=== PATIENT | female | born 1970 | race Caucasian/White ===

== ENCOUNTER → 2020-03-23 09:43 | Outpatient (BNVA) | payer OTHER, SELFPAY | PROVIDERS: Family Provider Nurse Practitioner; PCP Nurse Practitioner; Visit Provider Nurse Practitioner | DX: Z00.00 Encounter for general adult medical examination without abnormal findings (principal); I10 Essential (primary) hypertension; E66.01 Morbid (severe) obesity due to excess calories; Z12.39 Encounter for other screening for malignant neoplasm of breast; Z78.9 Other specified health status | CPT/HCPCS: 80053; 80061; 83036; 85025; 88175 ==

== ENCOUNTER → 2020-05-06 11:14 | Outpatient (BNVA) | payer OTHER, SELFPAY | PROVIDERS: Family Provider Nurse Practitioner; PCP Nurse Practitioner; Visit Provider Nurse Practitioner | DX: M10.9 Gout, unspecified (principal); M25.572 Pain in left ankle and joints of left foot; M77.32 Calcaneal spur, left foot; M76.62 Achilles tendinitis, left leg | CPT/HCPCS: 73610; 73630; 84550; 85025 ==

== ENCOUNTER → 2020-10-20 08:35 | Outpatient (BNVA) | payer SELFPAY | PROVIDERS: PCP Nurse Practitioner; Visit Provider Nurse Practitioner | DX: Z01.89 Encounter for other specified special examinations (principal) ==

== ENCOUNTER 2020-11-28 07:21 | Outpatient (CLI) | payer OTHER, SELFPAY ==
[2020-11-28 08:28] VITALS: BP 132/85; PULSE 75; RESP 19; TEMP 36.9; O2SAT 97
[2020-11-28 09:13] VITALS: BP 121/79; PULSE 64; RESP 19; O2SAT 94
--- NOTE | 2020-11-28 10:40 | A.OFFVIS_ITS ---
Patient Information Referred by: ROHINI Berry Symptom onset date: 11/23/20 COVID 19 common symptoms: positive fever(s), chills, cough, dyspnea, fatigue and body aches Severity: moderate Treatment prior to arrival: none Other details: Patient is a 50-year-old female here for a BAM infusion. Patient qualifies based on her BMI. Risks and benefits of using an experimental drug to treat COVID were discussed with patient and she verbalizes understanding and wishes to proceed with infusion. Positive results were not able to be verified as she was tested at [facility] and they are not open on Monday. Her is here for infusion as well and we do have a positive COVID result on file for him. She has direct exposure and symptomatic so spoke with Dr. Carson and will go ahead and order infusion. PATRIZIA COVID test results: No Data to Display no outside results available (pt was tested by [facility] and they are not open on Mon) Criteria/Plan Inclusion/Exclusion Criteria weight >/= 40kg, + direct test </= 10 days ago and symptom onset </= 10 days ago BMI >/= 35 not requiring hospitalization, not requiring oxygen (if not chronically on oxygen) and no increase oxygen requirement (if chronically on oxygen) Patient education patient/family/caregiver received/reviewed fact sheet, Emergency Use Authorization/unapproved drug status discussed with patient/family/caregiver, alternatives to this treatment discussed with patient/family/caregiver, risks and benefits of medication reviewed with patient/family/caregiver, patient/family/caregiver given opportunity for questions, which were answered and patient consents to receiving Monoclonal Antibody Treatment Plan for treatment Meets criteria for Monoclonal Antibody infusion Ordering Monoclonal Antibody infusion for today
--- NOTE | 2020-11-28 12:10 | PC.NURSE ---
Infusion finished, denies any complaints at this time.
--- NOTE | 2020-11-28 12:37 | PC.NURSE ---
IV DC'd ,cath intact, bleeding controlled with cotton ball and and coban. Tolerated well with zero complaints.
[2020-11-28 12:48] VITALS: BP 120/78; PULSE 70; RESP 18; TEMP 37.5; O2SAT 95
--- NOTE | 2020-11-28 13:10 | PC.NURSE ---
Patient denies any complaints at this time, discharged , patient resting in infusion room with .
== END 2020-11-28 07:22 | disposition home or self-care (01) ==
PROVIDERS: PCP Nurse Practitioner; Visit Provider Nurse Practitioner
DX: U07.1 COVID-19 (principal)
CPT/HCPCS: 96365

== ENCOUNTER → 2020-12-31 11:02 | Outpatient (BNVA) | payer OTHER, SELFPAY | PROVIDERS: PCP Nurse Practitioner; Visit Provider Nurse Practitioner | DX: R05 Cough (principal) | CPT/HCPCS: 71046 ==

== ENCOUNTER → 2021-05-17 10:22 | Outpatient (BNVA) | payer OTHER, SELFPAY | PROVIDERS: PCP Nurse Practitioner; Visit Provider Nurse Practitioner | DX: I10 Essential (primary) hypertension (principal); J98.01 Acute bronchospasm; G43.009 Migraine without aura, not intractable, without status migrainosus; M10.9 Gout, unspecified; R73.9 Hyperglycemia, unspecified; E66.01 Morbid (severe) obesity due to excess calories; Z86.69 Personal history of other diseases of the nervous system and sense organs | CPT/HCPCS: 80053 ==

== ENCOUNTER → 2021-11-15 10:38 | Outpatient (BNVA) | payer OTHER, SELFPAY | PROVIDERS: PCP Nurse Practitioner; Visit Provider Nurse Practitioner | DX: F41.1 Generalized anxiety disorder (principal); E66.01 Morbid (severe) obesity due to excess calories; M10.9 Gout, unspecified; I10 Essential (primary) hypertension; G43.009 Migraine without aura, not intractable, without status migrainosus; J30.89 Other allergic rhinitis; J98.01 Acute bronchospasm; Z86.69 Personal history of other diseases of the nervous system and sense organs | CPT/HCPCS: 80053; 80061; 84443 ==

== ENCOUNTER → 2022-06-01 13:54 | Outpatient (BNVA) | payer OTHER, SELFPAY | PROVIDERS: PCP Nurse Practitioner; Visit Provider Nurse Practitioner | DX: R73.9 Hyperglycemia, unspecified (principal); I10 Essential (primary) hypertension | CPT/HCPCS: 80053; 80061; 81000; 83036; 83721; 85025 ==

== ENCOUNTER 2022-06-20 10:16 | Outpatient (CLI) | payer OTHER, SELFPAY ==
--- NOTE | 2022-06-20 10:34 | MM_ITS ---
WS: [id number] VIEWS: MLO and CC views both breasts. 3D digital tomosynthesis is also included in this exam. Comparison made with prior exam of 11/16/2015, 11/30/2017,. Findings: There was no sign of mass, architectural distortion or suspicious calcification in either breast. 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
== END 2022-06-20 10:17 | disposition home or self-care (01) ==
LOC: RAD 10:21
PROVIDERS: PCP Nurse Practitioner; Visit Provider Nurse Practitioner
DX: Z12.31 Encounter for screening mammogram for malignant neoplasm of breast (principal)
CPT/HCPCS: 77063; 77067

== ENCOUNTER → 2023-04-10 15:30 | Outpatient (BNVA) | payer BC, SELFPAY | PROVIDERS: PCP Nurse Practitioner; Visit Provider Family Medicine | DX: E66.01 Morbid (severe) obesity due to excess calories (principal); M10.9 Gout, unspecified; I10 Essential (primary) hypertension | CPT/HCPCS: 80053; 80061; 84550; 85025 ==

== ENCOUNTER 2023-11-07 11:21 | Outpatient (CLI) | payer BC, SELFPAY ==
--- NOTE | 2023-11-07 11:40 | MM_ITS ---
WS: [id number] BILATERAL 3D TOMOSYNTHESIS DIGITAL SCREENING MAMMOGRAPHY WITH CAD CLINICAL INFORMATION: Z12.31 - Encounter for screening mammogram for malignant ... HISTORY: Screening mammogram. No current complaints. COMPARISON: 2022 TECHNIQUE: Bilateral CC and MLO views. FINDINGS: Scattered fibroglandular densities bilaterally. No suspicious focal mass, asymmetry, calcifications, or architectural distortion. No evidence of malignancy. Few tiny incidental punctate calcifications. MM/[id number] IMPRESSION: BI-RADS: 2-Benign FOLLOW UP: 1 Year Follow-up Recommend return to annual screening mammography.
== END 2023-11-07 11:22 | disposition home or self-care (01) ==
LOC: MOBLMAM 11:40
PROVIDERS: PCP Nurse Practitioner; Visit Provider Nurse Practitioner
DX: Z12.31 Encounter for screening mammogram for malignant neoplasm of breast (principal)
CPT/HCPCS: 77063; 77067

== ENCOUNTER → 2024-01-09 11:18 | Outpatient (BNVA) | payer BC, SELFPAY | PROVIDERS: PCP Nurse Practitioner; Visit Provider Nurse Practitioner | DX: I10 Essential (primary) hypertension (principal); E55.9 Vitamin D deficiency, unspecified; M10.9 Gout, unspecified; M25.511 Pain in right shoulder; M19.011 Primary osteoarthritis, right shoulder | CPT/HCPCS: 73030; 80053; 80061; 82306; 82607; 83735; 84550; 85025 ==

== ENCOUNTER → 2024-09-03 10:55 | Outpatient (BNVA) | payer BC, SELFPAY | PROVIDERS: PCP Nurse Practitioner; Visit Provider Nurse Practitioner | DX: Z12.4 Encounter for screening for malignant neoplasm of cervix (principal) | CPT/HCPCS: 88175 ==

== ENCOUNTER 2024-12-12 09:18 | Outpatient (CLI) | payer BC, SELFPAY ==
--- NOTE | 2024-12-12 09:20 | MM_ITS ---
WS: [id number] BILATERAL SCREENING DIGITAL TOMOSYNTHESIS MAMMOGRAM WITH CAD HISTORY: Z12.31 - Encounter for screening mammogram for malignant ... COMPARISON: 11/07/2023, 06/20/2022 Bilateral CC and MLO views with tomosynthesis and synthetic mammography submitted. Computer aided detection analyzed. Breast composition: There are scattered areas of fibroglandular density. No suspicious masses, microcalcifications or architectural distortion. Benign scattered calcifications in each breast. MM/MM scr tomosynthesis [id number] IMPRESSION: BI-RADS: 2 - Benign. FOLLOW UP: 1 Year Follow-up
== END 2024-12-12 09:19 | disposition home or self-care (01) ==
LOC: MOBLMAM 09:19
PROVIDERS: PCP Nurse Practitioner; Visit Provider Nurse Practitioner
DX: Z12.31 Encounter for screening mammogram for malignant neoplasm of breast (principal); R92.323 Mammographic fibroglandular density, bilateral breasts; R92.1 Mammographic calcification found on diagnostic imaging of breast
CPT/HCPCS: 77063; 77067